=== PATIENT | female | born 1985 | race Caucasian/White ===

== ENCOUNTER 2016-12-28 15:50 | Emergency (ER) | payer BC ==
[2016-12-28] MEDS ORDERED: SODIUM CHLORIDE 0.9% 1,000 ML IV ONE ×2 (17:35→17:36)
--- NOTE | 2016-12-28 17:39 | ED Physician Documentation ---
History of Present Illness - Stated complaint Stated Complaint: FAST HEART BEAT - Chief complaint Chief Complaint: Cardiac - History obtained from History obtained from: Patient, Family - History of Present Illness Timing: How many weeks ago (2) Pain level max: 0 Pain level now: 0 Improved by: lying down Worsened by: standing, walking - Additonal information Additional information: Patient is a 31-year-old female who presents to the emergency department with a complaint of her heart racing when she stands up or exerts herself over the past few weeks. Has been seen by her primary care doctor for the same and had normal blood work done. Including TSH and electrolytes. She is feeling more tired than usual and was sent here for evaluation. She believes that she may have been and may have had a miscarriage. Is not currently vaginally bleeding. Review of Systems Ten Systems: 10 systems reviewed and negative Constitutional: denies: Fever, Chills Ears: denies: Ear pain Nose: reports: Rhinorrhea / runny nose (now improved). denies: Congestion Throat: reports: Sore throat (mild, now better) Cardiac: denies: Chest pain / pressure Respiratory: denies: Cough, Wheezing GI: denies: Abdominal Pain, Nausea, Vomiting, Diarrhea : denies: Dysuria, Frequency, Hesitancy, Now EGA Skin: denies: Rash Musculoskeletal: denies: Neck pain, Back pain Neurologic: reports: Headache (2/10 gradual onset) PD PAST MEDICAL HISTORY - Past Medical History Past Medical History: No - Past Surgical History Past Surgical History: No - Present Medications Home Medications: Ambulatory Orders Medication Instructions Recorded Confirmed No Known Home Medications [No 12/28/16 12/28/16 Known Home Medications] - Allergies Allergies/Adverse Reactions: Allergies Allergy/AdvReac Type Severity Reaction Status Date / Time No Known Drug Allergies Allergy Verified 12/28/16 15:57 - Living Situation Living Situation: reports: With family Living Arrangement: reports: At home - Social History Does the pt smoke?: No Does the pt drink ETOH?: No Does the pt have substance abuse?: No PD ED PE NORMAL - Vitals Vital signs reviewed: Yes - General General: Alert and oriented X 3, No acute distress, Well developed/nourished - HEENT HEENT: PERRL, Moist mucous membranes - Neck Neck: Supple, no meningeal sign - Cardiac Cardiac: RRR, Strong equal pulses - Respiratory Respiratory: No respiratory distress, Clear bilaterally - Abdomen Abdomen: Soft, Non tender, Non distended - Derm Derm: Warm and dry, No rash - Extremities Extremities: No edema, No calf tenderness / cord - Neuro Neuro: Alert and oriented X 3, 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, No motor deficit, No sensory deficit, Normal speech - Psych Psych: Normal mood, Normal affect Results - Vitals Vitals: Vital Signs - 24 hr 12/28/16 12/28/16 12/28/16 15:53 17:30 18:40 Temperature 36.8 C Heart Rate 107 H 69 78 Respiratory 16 16 16 Rate Blood Pressure 133/82 H 127/75 122/65 O2 Saturation 100 100 100 12/28/16 20:11 Temperature Heart Rate 77 Respiratory 16 Rate Blood Pressure 118/68 O2 Saturation 99 Oxygen O2 Source Room air - EKG (time done) 1603 Rate: Rate (enter#) (91) Rhythm: NSR [place]: Normal Intervals: Normal MT QRS: Normal Ischemia: Normal ST segments - Labs Labs: Laboratory Tests 12/28/16 12/28/16 12/28/16 17:51 17:51 17:51 WBC 7.9 RBC 5.00 Hgb 14.1 Hct 42.3 MCV 84.6 MCH 28.2 MCHC 33.3 RDW 12.6 Plt Count 273 MPV 7.6 L Neut # 5.2 Lymph # 2.0 Chase # 0.6 Eos # 0.1 Baso # 0.1 Absolute Nucleated RBC 0.00 Nucleated RBC % 0.0 Sodium 139 Potassium 3.6 Chloride 103 Carbon Dioxide 23 Anion Gap 13.0 BUN 10 Creatinine 0.5 Estimated GFR (MDRD) 143 Glucose 92 Calcium 9.7 Total Bilirubin 0.7 AST 20 ALT 16 Alkaline Phosphatase 51 Total Protein 7.9 Albumin 4.8 Globulin 3.1 Albumin/Globulin Ratio 1.5 Lipase 24 TSH 0.98 Free T4 1.15 Urine Color Urine Clarity Urine pH Ur Specific [place] Urine Protein Urine Glucose (UA) Urine Ketones Urine Occult Blood Urine Nitrite Urine Bilirubin Urine Urobilinogen Ur Leukocyte Esterase Urine RBC Urine WBC Ur Squamous Epith Cells Urine Bacteria Urine Mucus Ur Microscopic Review Urine Culture Comments 12/28/16 18:42 WBC RBC Hgb Hct MCV MCH MCHC RDW Plt Count MPV Neut # Lymph # Chase # Eos # Baso # Absolute Nucleated RBC Nucleated RBC % Sodium Potassium Chloride Carbon Dioxide Anion Gap BUN Creatinine Estimated GFR (MDRD) Glucose Calcium Total Bilirubin AST ALT Alkaline Phosphatase Total Protein Albumin Globulin Albumin/Globulin Ratio Lipase TSH Free T4 Urine Color YELLOW Urine Clarity CLEAR Urine pH 6.0 Ur Specific [place] 1.015 Urine Protein NEGATIVE Urine Glucose (UA) NEGATIVE Urine Ketones 15 H Urine Occult Blood MODERATE H Urine Nitrite NEGATIVE Urine Bilirubin NEGATIVE Urine Urobilinogen 0.2 (NORMAL) Ur Leukocyte Esterase NEGATIVE Urine RBC 0-5 Urine WBC 0-3 Ur Squamous Epith Cells NONE SEEN Urine Bacteria None Seen Urine Mucus Few Strands Ur Microscopic Review INDICATED Urine Culture Comments NOT INDICATED PD MEDICAL DECISION MAKING - ED course Complexity details: reviewed results, re-evaluated patient, considered differential, d/w patient, d/w family ED course: Patient is a 31-year-old female who presents to the emergency department with intermittent tachycardia, especially with standing. Feeling more tired than usual over the past 2 weeks. Her EBV testing from her primary care provider appears that this may be related to a reactivation of EBV. Feels better after IV fluids, but still becomes lightheaded with standing. Tolerating p.o. without difficulty. Heart rate decreased after IV fluids and even with standing her heart rate only mildly increases now. We will continue supportive care and follow-up with her doctor. She is well-appearing, nontoxic. Afebrile. No acute findings on EKG or telemetry. Patient and family counseled regarding signs and symptoms for which I believe and urgent re-evaluation would be necessary. Patient with good understanding of and agreement to plan and is comfortable going home at this time This document was made in part using voice recognition software. While efforts are made to proofread this document, sound alike and grammatical errors may occur. Departure - Departure Disposition: 01 Home, Self Care Clinical Impression: Sinus tachycardia, Dehydration Condition: Good Instructions: ED Dehydration, ED Palpitations Follow-Up: Shelton Fleming in 1 week [Other] (Main fax: ) Comments: Return if you worsen. The cause of your symptoms is unclear today. It may be related to a reactivation of your mono or POTS syndrome. Follow up with your doctor for further evaluation. Discharge Date/Time: 12/28/16 20:24
[2016-12-28 18:07] LABS: BASOPHILS # (AUTO) 0.1 10^3/uL (0.0-0.1); BASOPHILS % (AUTO) 0.9 %; EOSINOPHILS # (AUTO) 0.1 10^3/uL (0.0-0.7); EOSINOPHILS % (AUTO) 0.9 %; HCT - HEMATOCRIT 42.3 % (37.0-47.0); HGB - HEMOGLOBIN 14.1 g/dL (12.0-16.0); LYMPHOCYTES % (AUTO) 25.6 %; MEAN CORPUSCULAR HEMOGLOBIN 28.2 pg (27.0-31.0); MEAN CORPUSCULAR HGB CONC 33.3 g/dL (32.0-36.0); MEAN CORPUSCULAR VOLUME 84.6 fL (81.0-99.0); MEAN PLATELET VOLUME 7.6 fL (7.9-10.8); MONOCYTES # (AUTO) 0.6 10^3/uL (0.0-1.0); MONOCYTES % (AUTO) 7.1 %; NEUTROPHILS # (AUTO) 5.2 10^3/uL (1.5-6.6); NEUTROPHILS % (AUTO) 65.5 %; RED CELL DISTRIBUTION WIDTH 12.6 % (12.0-15.0); UNCORRECTED WHITE BLOOD COUNT 7.9 x10^3/uL; WHITE BLOOD COUNT 7.9 x10^3/uL (4.8-10.8)
[2016-12-28 18:18] LABS: ALBUMIN/GLOBULIN RATIO 1.5 (1.0-2.2); BILIRUBIN,TOTAL 0.7 mg/dL (0.2-1.0); CALCIUM 9.7 mg/dL (8.5-10.3); CREATININE 0.5 mg/dL (0.4-1.0); POTASSIUM 3.6 mmol/L (3.5-5.0); TOTAL PROTEIN 7.9 g/dL (6.7-8.2)
[2016-12-28 18:35] LABS: THYROID STIMULATING HORMONE 0.98 uIU/mL (0.34-5.60)
[2016-12-28 18:47] LABS: BILIRUBIN,URINE NEGATIVE (NEGATIVE)
[2016-12-28 18:55] LABS: UA w/ MICROSCOPIC CHARGE YES
[2016-12-28] MEDS ORDERED: ONDANSETRON ODT 4 MG TABLET TL STA (18:55)
[2016-12-28] MEDS ORDERED: ACETAMINOPHEN 325 MG TABLET PO STA (18:55)
[2016-12-28] MEDS ORDERED: ONDANSETRON ODT 4 MG TABLET ONE ×2 (19:04→19:08)
[2016-12-28] MEDS ORDERED: ACETAMINOPHEN 325 MG TABLET PO ONE ×2 (19:04→19:08)
[2016-12-28 19:12] LABS: UR CULTURE IF IND NOT INDICATED; WBC,URINE 0-3 /HPF (0-5)
[2016-12-28 20:12] VITALS: BP 118/68
== END 2016-12-28 20:24 | disposition home or self-care (01) ==
LOC: ED 15:50
DX: R00.0 Tachycardia, unspecified (principal); E86.0 Dehydration
CPT/HCPCS: 36415; 80053; 81001; 83690; 84439; 84443; 85025; 93005; 96360; 99283; 99284; A9270; Q0162; 81003; 87086

== ENCOUNTER 2017-09-27 22:12 | Emergency (ER) | payer BC ==
--- NOTE | 2017-09-27 22:48 | ED Physician Documentation ---
PD HPI LOWER EXT INJURY - Stated complaint Stated Complaint: FOOT INJURY - Chief complaint Chief Complaint: Ext Problem - History obtained from History obtained from: Patient - History of Present Illness PD HPI LOW EXT INJURY LOCATION: Left, Foot Type of injury: Blunt / blow Where injury occurred: Home Timing - onset: How many hours ago (2) Timing - duration: Hours (2) Timing - details: Abrupt onset Pain level max: 8 Pain level now: 7 Improved by: Rest Worsened by: Moving, Palpating Associated symptoms: Swelling. No: Weakness, Numbness, Tingling Similar symptoms before: Has not had sx before Recently seen: Not recently seen - Additional information Additional information: PVC pipe was dropped on her left foot. She has approximately 24 weeks . Patient states she is unable to bear weight secondary to pain Review of Systems Constitutional: denies: Fever, Chills : reports: Now EGA Skin: denies: Rash Musculoskeletal: denies: Neck pain, Back pain Neurologic: denies: Focal weakness, Numbness PD PAST MEDICAL HISTORY - Past Medical History Past Medical History: No - Past Surgical History Past Surgical History: No - Present Medications Home Medications: Ambulatory Orders Medication Instructions Recorded Confirmed No Known Home Medications [No 12/28/16 12/28/16 Known Home Medications] - Allergies Allergies/Adverse Reactions: Allergies Allergy/AdvReac Type Severity Reaction Status Date / Time No Known Drug Allergies Allergy Verified 09/27/17 22:16 - Social History Does the pt smoke?: No Smoking Status: Never smoker Does the pt drink ETOH?: No Does the pt have substance abuse?: No - Immunizations Immunizations are current?: Yes - POLST Patient has POLST: No PD ED PE NORMAL - Vitals Vital signs reviewed: Yes - General General: Alert and oriented X 3, No acute distress - HEENT HEENT: Moist mucous membranes - Derm Derm: Warm and dry - Extremities Extremities: Other (Left foot - Mild swelling. Mild ecchymosis to the dorsum of the foot. Neurovascularly intact. No deformity. Otherwise normal exam) - Neuro Neuro: Alert and oriented X 3 Results - Vitals Vitals: Vital Signs - 24 hr 09/27/17 09/27/17 09/27/17 22:15 22:48 23:51 Temperature 36.6 C Heart Rate 85 81 Respiratory 16 16 16 Rate Blood Pressure 118/75 97/58 L O2 Saturation 99 98 Oxygen O2 Source Room air - Rads (name of study) Left foot x-ray Radiology: Prelim report reviewed, EMP read contemporaneously, See rad report ( No acute osseous abnormality) PD MEDICAL DECISION MAKING - ED course Complexity details: reviewed results, re-evaluated patient, considered differential, d/w patient ED course: Patient is a 32-year-old female with a left foot contusion. Placed in a postoperative shoe for comfort. Given pain medication here. We will have her follow-up with her doctor for further evaluation and care. She brought her own crutches with her. Patient and family counseled regarding signs and symptoms for which I believe and urgent re-evaluation would be necessary. Patient with good understanding of and agreement to plan and is comfortable going home at this time This document was made in part using voice recognition software. While efforts are made to proofread this document, sound alike and grammatical errors may occur. - Sepsis Event Vital Signs: Vital Signs - 24 hr 09/27/17 09/27/17 09/27/17 22:15 22:48 23:51 Temperature 36.6 C Heart Rate 85 81 Respiratory 16 16 16 Rate Blood Pressure 118/75 97/58 L O2 Saturation 99 98 Oxygen O2 Source Room air Departure - Departure Disposition: 01 Home, Self Care Clinical Impression: Contusion of foot, left Qualifiers: Encounter type: initial encounter Qualified Code(s): S90.32XA - Contusion of left foot, initial encounter Condition: Good Instructions: ED Contusion Foot Follow-Up: Provider,Other [Primary Care Provider] - Within 1 week Comments: Your x-rays are normal tonight. Return if you worsen. Wear the postoperative shoe and use the crutches as needed for comfort. Discharge Date/Time: 09/27/17 23:52
--- NOTE | 2017-09-27 23:14 | XRAY Report ---
Procedure Date: 09/27/2017 Accession Number: [id number] / [id number] Procedure: XR - Foot 3 View LT CPT Code: FULL RESULT: EXAM: LEFT FOOT RADIOGRAPHY EXAM DATE: 09/27/2017 11:02 PM. CLINICAL HISTORY: L foot pain s/p pipe dropped on foot. COMPARISON: None. TECHNIQUE: 3 views. FINDINGS: Bones: Normal. No fractures or bone lesions. Joints: Normal. No subluxations. Soft Tissues: Normal. No soft tissue swelling. IMPRESSION: Normal foot radiography. [facility]
[2017-09-27] MEDS ORDERED: HYDROcod/ACETAM 5/325 MG TABLET PO STA (23:34)
[2017-09-27 23:52] VITALS: BP 97/58
== END 2017-09-27 23:52 | disposition home or self-care (01) ==
LOC: ED 22:12
DX: O99.89 Other specified diseases and conditions complicating pregnancy, childbirth and the puerperium (principal); S90.32XA Contusion of left foot, initial encounter; W20.8XXA Other cause of strike by thrown, projected or falling object, initial encounter; Y92.009 Unspecified place in unspecified non-institutional (private) residence as the place of occurrence of the external cause; Z3A.24 24 weeks gestation of pregnancy
CPT/HCPCS: 73630; 99283; A9270

== ENCOUNTER 2019-11-17 07:00 | Outpatient (CLI) | payer BC ==
[2019-11-17 22:26] LABS: CANDIDA GROUP DNA NEGATIVE (NEGATIVE); CANDIDA KRUSEI DNA NEGATIVE (NEGATIVE); TRICHOMONAS VAGINALIS DNA NEGATIVE (NEGATIVE)
== END 2019-11-17 23:59 | disposition home or self-care (01) ==
LOC: LAB.R 07:00
PROVIDERS: ATTEND Advanced Practice Midwife
DX: N76.0 Acute vaginitis (principal)
CPT/HCPCS: 87661; 87801

== ENCOUNTER 2020-01-22 11:46 | Outpatient (CLI) | payer BC | END 2020-01-22 11:47 | disposition home or self-care (01) | LOC: COV 11:46 | PROVIDERS: ATTEND Family Medicine | DX: R50.9 Fever, unspecified (principal); M79.10 Myalgia, unspecified site; R53.83 Other fatigue; R09.81 Nasal congestion; Z20.828 Contact with and (suspected) exposure to other viral communicable diseases ==